=== PATIENT | male | born 1980 | race African-American/Black ===

== ENCOUNTER 2016-06-26 23:06 | Emergency (ER) | payer BC ==
[~2016-06-26 23:06] MED LIST: AUGMENTIN PO; LORTAB 5/500 TA1 TA1 PO
== END 2016-06-26 23:53 | disposition home or self-care (01) ==
LOC: CFTX 23:06
DX: S61.451A Open bite of right hand, initial encounter (principal); S81.851A Open bite, right lower leg, initial encounter; Z23 Encounter for immunization; W54.0XXA Bitten by dog, initial encounter; Y92.009 Unspecified place in unspecified non-institutional (private) residence as the place of occurrence of the external cause; F17.210 Nicotine dependence, cigarettes, uncomplicated
CPT/HCPCS: 12002; 90471; 90715; 99283